=== PATIENT | male | born 1955 | race Hispanic/Latino ===

== ENCOUNTER 2020-05-13 19:57 | Observation (INO) | payer OTHER, SELFPAY ==
[2020-05-14 01:12] LABS: Troponin I Less than 0.010 ng/mL (< 0.028)
[2020-05-14 03:59] LABS: Troponin I 0.022 ng/mL (< 0.028)
[2020-05-14] MEDS ORDERED: Dextrose 5% in Water 1,000 ML IV PRN (04:25)
[2020-05-14] MEDS ORDERED: HumaLOG 300 UNITS/3 ML VIAL SC PRN (04:25)
[2020-05-14] MEDS ORDERED: Dextrose 50% Abboject 50 ML SYRINGE SLOW IVP PRN (04:25)
[2020-05-14] MEDS: Sodium Chloride 0.9% 1,000 ML IV SCH ×2 (05:17→21:06)
[2020-05-14 05:40] LABS: #Basophils 0.1 thou/uL (0.0-0.2); #Eosinphils 0.1 thou/uL (0.0-0.7); #Lymphocytes 2.1 thou/uL (1.20-3.40); #Monocytes 0.6 thou/uL (0.11-0.59); #Neutrophils 7.5 thou/uL (1.40-6.50); %Basophils 0.6 % (0.0-1.0); %Lymphocytes 20.1 % (21.0-51.0); %Monocytes 5.8 % (0.0-10.0); %Neutrophils 72.4 % (42.0-75.0); Mean Corpuscular HGB CONC 33.9 g/dL (32.0-36.0); Mean Corpuscular Hemoglobin 29.3 pg (27.0-31.0); Mean Corpuscular Volume 86.6 fL (78.0-98.0); Mean Platelet Volume 7.8 fL (7.4-10.4); Platelet Count 293 thou/uL (130-400); RBC Distribution Width 12.2 % (11.5-14.5); Red Blood Cell (RBC) Count 4.76 mill/uL (4.70-6.10); White Blood Cell (WBC) Count 10.4 thou/uL (4.8-10.8)
[2020-05-14 06:15] LABS: Anion Gap 12 mmol/L (10-20); BUN (Urea Nitrogen) 25 mg/dL (8.4-25.7); Calc. Creatinine Clearance 70 mL/min (70-130); Calcium 7.5 mg/dL (7.8-10.44); Carbon Dioxide 22 mmol/L (23-31); Chloride 107 mmol/L (98-107); Estimated GFR-MDRD 49; Glucose 124 mg/dL (80-115); Potassium 3.3 mmol/L (3.5-5.1); Sodium 138 mmol/L (136-145)
--- NOTE | 2020-05-14 08:00 | HP ---
REASON FOR ADMISSION: Dizziness and elevated blood pressure. HISTORY OF PRESENT ILLNESS: This is a 65-year-old male patient, who presented to the ER, reporting that his blood pressure has been high. Also, he had tinnitus in his left ear and decreased hearing. He also was dizzy, but currently not dizzy anymore. Patient denies any trauma to his ear and denies recent viral illness. Denies being exposed to loud noise. PAST MEDICAL HISTORY: 1. Diabetes. 2. High blood pressure. PAST SURGICAL HISTORY: Postcholecystectomy. ALLERGIES: NO NOTE OF ANY DRUG ALLERGIES. SOCIAL HISTORY: Does not smoke. Drinks alcohol occasionally. REVIEW OF SYSTEMS: All systems reviewed except the above mentioned, found to be negative. PHYSICAL EXAMINATION: GENERAL: Awake, alert, oriented, does not appear in distress. VITAL SIGNS: His blood pressure is 170/82, heart rate of 67, temperature is 98.1, saturating 94% on room air. HEENT: Head is nontraumatic, normocephalic. Pupils equal, reactive. Extraocular movements are intact. Nonicteric sclerae. Well injected conjunctivae. Oral mucosa normal. Nasal mucosa normal. I did examine his ear and I do see a slight wax buildup on his left eardrum. He does have decreased hearing on the left side on my physical examination. NECK: Supple. No adenopathy. No murmur. Thyroid is not palpable. Trachea is midline. No supraclavicular adenopathy. HEART: S1, S2 regular. No murmurs. No gallops. No friction rubs. No displacement of PMI. LUNGS: Clear to auscultation bilaterally. No wheezes, no rhonchi, no crackles. ABDOMEN: Bowel sounds are positive, slight tenderness on palpation of the lower abdominal area, but overall, the abdomen is soft. EXTREMITIES: No lower extremity edema. No cyanosis. NEUROLOGIC: I do not detect any nystagmus. Cranial nerves appeared to be intact. He does have normal motor function throughout all his 4 extremities. DIAGNOSTIC STUDIES: CT of the brain showed no acute findings. Chest x-ray shows mild cardiomegaly, but no acute finding. 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 LABORATORY DATA: Blood work shows sodium of 143, potassium 3.4, bicarb 24, creatinine 1.98. No previous labs to compare with. Troponin less than 0.01. WBC of 11.3, hemoglobin 15.4, neutrophil count 89.8%. ASSESSMENT AND PLAN: 1. This is a 65-year-old male patient presenting with uncontrolled blood pressure, also dizziness that resolved, but persistent decreased hearing and tinnitus in his left ear, possibly due to Meniere disease. On the other hand, we should rule out central etiology and for that reason, he will undergo an MRI of the brain. We will practice permissive hypertension and we will continue with aspirin. 2. Gastrointestinal. Patient does have slight abdominal discomfort on palpation of his lower abdomen. CT scan of the abdomen mentioned that possibility of enteritis. For now, we will continue to observe him from that standpoint. 3. Endocrinology. Patient is diabetic. We will hold his metformin and his oral antidiabetics. He will be on insulin sliding scale and in regards of the incidental finding of his adrenal mass, Urology was consulted for further input. 4. Renal system. Electrolytes, patient has increased creatinine. We do not know his baseline. As per him, he was never told that he has kidney problems. We will hydrate with IV fluids. We will recheck his electrolytes. Until then, we will hold his VIVIAN inhibitor. Hold his metformin. 5. For deep vein thrombosis prophylaxis, he will be on heparin subcutaneously. Job ID: [id number]
[2020-05-14] MEDS: Heparin 5,000 UNITS/ML VIAL SC SCH ×2 (08:37→16:15)
[2020-05-14] MEDS ORDERED: Aspirin 81 mg Enteric Coated Tablet PO SCH (09:00)
--- NOTE | 2020-05-14 10:20 | MRI ---
MRI BRAIN WITHOUT CONTRAST: HISTORY: Vertigo, concern for stroke COMPARISON: None CORRELATION: CT scan from 05/13/2020. FINDINGS: No restricted diffusion is seen. There are foci of T2 prolongation in the periventricular white matte r, consistent with mild chronic small vessel ischemic disease. The ventricular size is appropriate and the basilar cisterns are patent. No evidence of acute infarct, hemorrhage, midline shift or abnormal extra-axial fluid collections is seen. There is mild mucosal disease in the paranasal sinuses. IMPRESSION: No evidence of acute intracranial process.
[2020-05-14] MEDS ORDERED: Metoprolol Tartrate 25 MG TAB PO SCH ×2 (11:00→21:00)
--- NOTE | 2020-05-14 14:59 | CON ---
NEUROLOGICAL CONSULTATION DATE OF CONSULTATION: 05/14/2020 REASON FOR CONSULTATION: Dizziness, hypertensive emergency, rule out CVA. HISTORY OF PRESENT ILLNESS: Mr. Abdon Chaudhari is a Persian-speaking 65-year-old male with history significant for diabetes and hypertension, presented to the emergency room yesterday with dizziness, decreased hearing in the left ear because of persistent ringing in the ear. When he arrived to the emergency room, his blood pressure was high. The patient denies any focal weakness, focal paresthesias. He does complain of nausea, vomiting, mild headache, but denies chest pain, abdominal pain, recent illness or recent exposure to COVID, loss of vision or blurred vision associated with dizziness. His symptoms almost resolved today except left ear tinnitus REVIEW OF SYSTEMS: All 14 systems were reviewed and were negative except the pertinent positives and negatives mentioned in the HPI. PAST MEDICAL HISTORY: Diabetes, hypertension. PAST SURGICAL HISTORY: Cholecystectomy. ALLERGIES: NO KNOWN DRUG ALLERGIES. SOCIAL HISTORY: The patient denies smoking. Drinks alcohol occasionally. PHYSICAL EXAMINATION: VITAL SIGNS: Blood pressure 140/60, pulse 80, respiratory rate 18. CVS: Regular rate and rhythm. CHEST: Clear. ABDOMEN: Soft. NECK: Supple. NEUROLOGIC: Mental status; the patient is alert and oriented to person, place, and time. Recent and remote memory intact. Speech is clear. Cranial nerves 2 through 12 intact. Sensory intact. Cerebellar, finger-nose testing intact. Gait, deferred due to the patient's safety reason. LABORATORY DATA: Data reviewed. I reviewed the MRI of the brain, which was negative for acute intracranial pathology. ASSESSMENT AND PLAN: Mr. Abdon Chaudhari is consulted for dizziness and ringing in the left ear, most likely benign positional vertigo versus hypertensive emergency. Consider ENT input Symptomatic treatment of vertigo with medication. MRI of the brain reviewed and it was negative for acute intracranial pathology. Neuro checks every 4 hours. Continue home medications. PT/OT Continue medical management per primary team. Thank you for the consult. Job ID: [id number] [facility]
[2020-05-14 16:05] LABS: SARS-CoV-2 MS2 Positive; SARS-CoV-2 N Gene Negative; SARS-CoV-2 S Gene Negative; SARS-CoV-2 by NAA Not Detected (NotDetected); SARS-CoV-2 orf1ab Negative
[2020-05-14 16:17] VITALS: BP 160/82; TEMP 97.9
[2020-05-14] MEDS ORDERED: Lisinopril 20 MG TAB PO SCH (21:00)
--- NOTE | 2020-05-15 00:16 | DIS ---
DATE OF ADMISSION: 05/13/2020 DATE OF DISCHARGE: 05/14/2020 DIAGNOSIS: The patient was diagnosed with vertigo secondary to elevated/high blood pressure. HISTORY OF PRESENT ILLNESS: Mr. Chaudhari is a 65-year-old gentleman with a past medical history of type 2 diabetes and hypertension, who presented with a 4-day history of ringing in his left ear. He reports during that time, his blood pressure had been elevated at as high as systolic blood pressure with 186. Patient was admitted for CVA evaluation. HOSPITAL COURSE: An MRI of the head was obtained to rule out central causes of vertigo and revealed no acute infarcts. Neurology was consulted due to CVA evaluation. As evaluation was negative for CVA, patient's tinnitus is likely secondary to benign positional vertigo versus uncontrolled hypertension vs medication side effect. PHYSICAL EXAMINATION: General: resting comfortably in bed HEART: Regular rate and rhythm, no murmurs. LUNGS: Clear to auscultation bilaterally. ABDOMEN: Soft, nontender, and nondistended. EXTREMITIES: There was no peripheral edema. NEURO: No focal neuro deficits, moving all extremities spontaneously. DISPOSITION AND CONDITION: The patient will be discharged home in stable condition. ACTIVITY: As tolerated. DIET: Diabetic diet. DISCHARGE MEDICATIONS: All home medications have been continued. No new medications were started in the hospital. DISCHARGE INSTRUCTIONS: The patient was instructed to follow up with his PCP within 3 days and ENT for further evaluation of tinnitus. All questions were answered. Return precautions were given. TIME SPENT ON THE PATIENT'S DISCHARGE: Greater than 30 minutes. Job ID: [id number] [facility]
[2020-05-15] MEDS ORDERED: Amlodipine 10 MG TAB PO SCH (09:00)
== END 2020-05-14 19:40 | disposition home or self-care (01) ==
LOC: ERS 19:57 → 2SW 21:29
PROVIDERS: ADMIT Internal Medicine; ATTEND Internal Medicine
DX: I16.1 Hypertensive emergency (principal); H93.12 Tinnitus, left ear; I10 Essential (primary) hypertension; E11.9 Type 2 diabetes mellitus without complications; Z79.84 Long term (current) use of oral hypoglycemic drugs; Z79.899 Other long term (current) drug therapy; Z20.828 Contact with and (suspected) exposure to other viral communicable diseases
CPT/HCPCS: 36415; 36416; 70551; 80048; 84484; 85025; 87635; 90471; 90732; 96360; 96361; 96372; 99285; G0009; G0378; J1644; U0003

== ENCOUNTER 2022-02-21 20:07 | Emergency (ER) | payer SELFPAY | END 2022-02-21 21:42 | disposition home or self-care (01) | LOC: ERS 20:07 | DX: S91.301A Unspecified open wound, right foot, initial encounter (principal); I10 Essential (primary) hypertension; E11.9 Type 2 diabetes mellitus without complications; E78.2 Mixed hyperlipidemia; W45.8XXA Other foreign body or object entering through skin, initial encounter | CPT/HCPCS: 99283 ==

== ENCOUNTER 2022-11-17 21:31 | Inpatient (IN) | payer MEDICAID, SELFPAY ==
[2022-11-17] MEDS ORDERED: Nitroglycerin 0.4 MG TAB 1 EACH ONE ×3 (22:01→22:29)
[2022-11-17] MEDS ORDERED: Aspirin Chewable 81 MG TAB ONE (22:01)
[2022-11-17 22:11] LABS: #Eosinphils 0.3 thou/uL (0.0-0.7); #Lymphocytes 2.9 thou/uL (1.20-3.40); #Monocytes 0.7 thou/uL (0.11-0.59); #Neutrophils 10.8 thou/uL (1.40-6.50); %Basophils 0.3 % (0.0-1.0); %Eosinophils 2.1 % (0.0-10.0); %Lymphocytes 19.4 % (21.0-51.0); %Neutrophils 73.2 % (42.0-75.0); Hemoglobin 8.8 g/dL (14.0-18.0); Mean Corpuscular HGB CONC 35.1 g/dL (32.0-36.0); Mean Corpuscular Hemoglobin 31.3 pg (27.0-31.0); Mean Corpuscular Volume 89.2 fl (78.0-98.0); Mean Platelet Volume 7.3 fL (7.4-10.4); Platelet Count 244 10x3/uL (130-400); RBC Distribution Width 14.1 % (11.5-14.5); Red Blood Cell (RBC) Count 2.82 mill/uL (4.70-6.10); White Blood Cell (WBC) Count 14.7 10x3/uL (4.8-10.8)
[2022-11-17 22:37] LABS: ALT (SGPT) 14 U/L (8-55); AST (SGOT) 24 U/L (5-34); Alkaline Phosphatase 114 U/L (40-110); Anion Gap 22 mmol/L (10-20); BUN (Urea Nitrogen) 108 mg/dL (8.4-25.7); Bilirubin, Total 0.4 mg/dL (0.2-1.2); Calc. Creatinine Clearance 0 mL/min (70-130); Carbon Dioxide 15 mmol/L (23-31); Chloride 108 mmol/L (98-107); Estimated GFR 5; Globulin 3.9 g/dL (2.4-3.5); Potassium 2.9 mmol/L (3.5-5.1); Protein, Total 6.9 g/dL (5.8-8.1); Sodium 142 mmol/L (136-145)
[2022-11-17 22:41] LABS: Calcium 6.7 mg/dL (7.8-10.44); Glucose 45 mg/dL (80-115)
[2022-11-17] MEDS ORDERED: Potassium Chloride 20 MEQ/100 ML PREMIX BAG ONE (22:51)
[2022-11-17] MEDS ORDERED: Furosemide 20 MG/2 ML VIAL ONE (22:51)
[2022-11-17 22:59] LABS: CKMB 3.8 ng/mL (0-6.6)
[2022-11-17] MEDS ORDERED: Nitroglycerin 2% Ointment 1 INCH/1 GM Packet ONE (23:02)
[2022-11-17] MEDS ORDERED: Cefepime 2 GM VIAL ONE (23:33)
[2022-11-17 23:43] LABS: CK (CPK) 168 U/L (30-200); Magnesium 2.2 mg/dL (1.6-2.6)
[2022-11-17] MEDS ORDERED: hydrALAZINE 20 MG/ML VIAL ONE (23:47)
[2022-11-18 00:12] LABS: Bacteria/HPF None Seen HPF (None Seen); Bilirubin Negative (Negative); Blood, Urine 1+ (Negative); Clarity Clear (Clear); Glucose, Urine (Dipstick) 30 mg/dL (Negative); Ketone, Urine Negative (Negative); Leukocyte Negative Leu/uL (Negative); Nitrite Negative (Negative); Protein, Urine (Dipstick) 300 mg/dL (Neg-Trace); RBC/HPF 0-3 HPF (0-3); Specific Gravity, Urine 1.016 (1.002-1.036); Squamous Epithelial 0-3 HPF (0-3); Urobilinogen Normal mg/dL (Less than 2)
[2022-11-18] MEDS ORDERED: Dextrose 5% in Water 1,000 ML IV PRN (00:13)
[2022-11-18] MEDS ORDERED: Dextrose 50% Abboject 50 ML SYRINGE SLOW IVP PRN (00:13)
[2022-11-18] MEDS ORDERED: Vancomycin 1.5 GRAM/300 ML BAG 1.5 GM in Premix Bag 1 BAG IVPB SCH (00:15)
[2022-11-18] MEDS ORDERED: niCARdipine 25 MG/10 ML SDV ONE ×2 (00:49→00:59)
[2022-11-18 00:50] LABS: SARS-CoV-2 NAA Rapid Test Not Detected (NotDetected)
[2022-11-18 02:00] LABS: #Eosinphils 0.2 thou/uL (0.0-0.7); #Lymphocytes 1.8 thou/uL (1.20-3.40); #Monocytes 0.7 thou/uL (0.11-0.59); #Neutrophils 10.6 thou/uL (1.40-6.50); %Basophils 0.3 % (0.0-1.0); %Eosinophils 1.3 % (0.0-10.0); %Lymphocytes 13.8 % (21.0-51.0); %Monocytes 5.1 % (0.0-10.0); %Neutrophils 79.6 % (42.0-75.0); Hemoglobin 9.6 g/dL (14.0-18.0); Mean Corpuscular HGB CONC 33.7 g/dL (32.0-36.0); Mean Corpuscular Hemoglobin 30.1 pg (27.0-31.0); Mean Corpuscular Volume 89.5 fl (78.0-98.0); Mean Platelet Volume 6.7 fL (7.4-10.4); Platelet Count 244 10x3/uL (130-400); RBC Distribution Width 14.1 % (11.5-14.5); Red Blood Cell (RBC) Count 3.17 mill/uL (4.70-6.10); White Blood Cell (WBC) Count 13.3 10x3/uL (4.8-10.8)
[2022-11-18] MEDS ORDERED: Lorazepam 2 MG/ML VIAL SLOW IVP SCH (02:00)
[2022-11-18 02:26] LABS: Troponin I 0.111 ng/mL (< 0.028)
[2022-11-18] MEDS ORDERED: niCARdipine 25 MG in Sodium Chloride 0.9% 250 ML 250 ML IVPB SCH ×2 (02:45→03:45)
[2022-11-18 02:49] LABS: Phosphorus 7.9 mg/dL (2.3-4.7)
[2022-11-18 02:53] VITALS: BMI 39.6
[2022-11-18 02:54] LABS: ALT (SGPT) 15 U/L (8-55); AST (SGOT) 28 U/L (5-34); Albumin 2.8 g/dL (3.4-4.8); Alkaline Phosphatase 123 U/L (40-110); Anion Gap 22 mmol/L (10-20); BUN (Urea Nitrogen) 111 mg/dL (8.4-25.7); Bilirubin, Total 0.5 mg/dL (0.2-1.2); Calc. Creatinine Clearance 9 mL/min (70-130); Carbon Dioxide 13 mmol/L (23-31); Chloride 109 mmol/L (98-107); Estimated GFR 5; Glucose 108 mg/dL (80-115); Magnesium 2.2 mg/dL (1.6-2.6); Potassium 3.1 mmol/L (3.5-5.1); Protein, Total 6.8 g/dL (5.8-8.1); Sodium 141 mmol/L (136-145)
[2022-11-18 03:04] LABS: Calcium 6.8 mg/dL (7.8-10.44)
[2022-11-18 03:59] LABS: #Eosinphils 0.2 thou/uL (0.0-0.7); #Lymphocytes 1.2 thou/uL (1.20-3.40); #Monocytes 0.6 thou/uL (0.11-0.59); #Neutrophils 10.1 thou/uL (1.40-6.50); %Basophils 0.1 % (0.0-1.0); %Eosinophils 1.5 % (0.0-10.0); %Lymphocytes 9.5 % (21.0-51.0); %Monocytes 5.2 % (0.0-10.0); %Neutrophils 83.7 % (42.0-75.0); Hemoglobin 9.2 g/dL (14.0-18.0); Mean Corpuscular HGB CONC 34.6 g/dL (32.0-36.0); Mean Corpuscular Volume 89.5 fl (78.0-98.0); Mean Platelet Volume 7.6 fL (7.4-10.4); Platelet Count 230 10x3/uL (130-400); RBC Distribution Width 14.2 % (11.5-14.5); Red Blood Cell (RBC) Count 2.96 mill/uL (4.70-6.10); White Blood Cell (WBC) Count 12.1 10x3/uL (4.8-10.8)
[2022-11-18 04:19] LABS: Phosphorus 7.7 mg/dL (2.3-4.7)
[2022-11-18 06:33] LABS: Troponin I 0.152 ng/mL (< 0.028)
[2022-11-18] MEDS: Heparin 5,000 UNITS/ML VIAL SC SCH ×3 (08:21→20:59)
[2022-11-18] MEDS ORDERED: Famotidine 20 MG TAB PO SCH ×2 (09:00→21:00)
[2022-11-18] MEDS ORDERED: NIFEdipine XL 60 MG TAB PO SCH (11:15)
[2022-11-18] MEDS ORDERED: Furosemide 40 MG/4 ML VIAL SLOW IVP SCH (11:15)
[2022-11-18] MEDS ORDERED: Carvedilol 6.25 MG TAB PO SCH (11:15)
[2022-11-18] MEDS: CALCIUM GLUC 1 GM/NS 50 ML 1 GM in Premix Bag 1 BAG IVPB SCH ×2 (12:43→14:42)
[2022-11-18] MEDS: Potassium Bicarbonate/Cit Ac 20 MEQ TAB PO SCH ×3 (12:46→18:53)
[2022-11-18] MEDS ORDERED: hydrALAZINE 25 MG TAB PO SCH (15:00)
[2022-11-18] MEDS ORDERED: Sodium Bicarbonate Tab 325 MG TAB PO SCH ×2 (16:30→21:00)
[2022-11-18] MEDS: Carvedilol 6.25 MG TAB PO SCH (17:20)
[2022-11-18 17:53] LABS: Albumin 2.3 g/dL (3.4-4.8); Anion Gap 19 mmol/L (10-20); BUN (Urea Nitrogen) 110 mg/dL (8.4-25.7); BUN/Creatinine Ratio 10.43; Calc. Creatinine Clearance 10 mL/min (70-130); Carbon Dioxide 15 mmol/L (23-31); Chloride 110 mmol/L (98-107); Estimated GFR 5; Glucose 99 mg/dL (80-115); Phosphorus 8.5 mg/dL (2.3-4.7); Potassium 3.7 mmol/L (3.5-5.1); Sodium 140 mmol/L (136-145)
[2022-11-18 17:56] LABS: Calcium 6.9 mg/dL (7.8-10.44)
[2022-11-18] MEDS ORDERED: Calcium Gluconate 13.8 MEQ in Sodium Chloride 0.9% 250 ML 250 ML IVPB SCH (18:50)
[2022-11-18] MEDS: Furosemide 40 MG/4 ML VIAL SLOW IVP SCH (20:59)
[2022-11-18] MEDS ORDERED: cefTRIAXone\\ROCEPHIN 2 GM in Sodium Chloride 0.9% 100 ML IVPB SCH (22:00)
[2022-11-18] MEDS ORDERED: Azithromycin 500 MG in Sodium Chloride 0.9% 250 ML 250 ML IVPB SCH (23:00)
[2022-11-19] MEDS ORDERED: Lorazepam 2 MG/ML VIAL SLOW IVP SCH (00:15)
[2022-11-19 03:51] LABS: #Eosinphils 0.1 thou/uL (0.0-0.7); #Lymphocytes 0.9 thou/uL (1.20-3.40); #Monocytes 0.3 thou/uL (0.11-0.59); #Neutrophils 9.1 thou/uL (1.40-6.50); %Basophils 0.1 % (0.0-1.0); %Eosinophils 0.5 % (0.0-10.0); %Monocytes 3.1 % (0.0-10.0); %Neutrophils 87.2 % (42.0-75.0); Hemoglobin 7.8 g/dL (14.0-18.0); Mean Corpuscular HGB CONC 34.1 g/dL (32.0-36.0); Mean Corpuscular Hemoglobin 30.7 pg (27.0-31.0); Mean Platelet Volume 7.8 fL (7.4-10.4); Platelet Count 221 10x3/uL (130-400); RBC Distribution Width 13.9 % (11.5-14.5); Red Blood Cell (RBC) Count 2.54 mill/uL (4.70-6.10); White Blood Cell (WBC) Count 10.4 10x3/uL (4.8-10.8)
[2022-11-19 04:15] LABS: Albumin 2.1 g/dL (3.4-4.8); Anion Gap 21 mmol/L (10-20); BUN (Urea Nitrogen) 112 mg/dL (8.4-25.7); BUN/Creatinine Ratio 10.39; Calc. Creatinine Clearance 9 mL/min (70-130); Calcium 7.2 mg/dL (7.8-10.44); Carbon Dioxide 15 mmol/L (23-31); Chloride 110 mmol/L (98-107); Estimated GFR 5; Glucose 128 mg/dL (80-115); Iron 64 ug/dL (65-175); Iron Binding Capacity, Total 171 mcg/dL (261-462); Potassium 3.9 mmol/L (3.5-5.1); Sodium 142 mmol/L (136-145)
[2022-11-19 04:17] LABS: Phosphorus 9.3 mg/dL (2.3-4.7)
[2022-11-19] MEDS ORDERED: Albumin 25% 25 GM/100 ML BOT IVPB SCH (07:30)
[2022-11-19] MEDS: Heparin 5,000 UNITS/ML VIAL SC SCH ×3 (07:44→20:46)
[2022-11-19] MEDS: Furosemide 40 MG/4 ML VIAL SLOW IVP SCH ×2 (07:44→20:46)
[2022-11-19] MEDS: Carvedilol 6.25 MG TAB PO SCH ×2 (07:45→16:59)
[2022-11-19] MEDS: NIFEdipine XL 60 MG TAB PO SCH (07:49)
[2022-11-19] MEDS: Ergocalciferol 1.25 MG(50,000 UNITS) CAP PO SCH (07:58)
[2022-11-19] MEDS: Calcitriol 0.25 MCG CAP PO SCH (07:58)
[2022-11-19] MEDS: Sodium Bicarbonate Tab 325 MG TAB PO SCH ×3 (07:59→20:46)
[2022-11-19] MEDS: Albumin 25% 25 GM/100 ML BOT IVPB SCH ×2 (11:53→16:59)
[2022-11-19 12:13] LABS: Creatinine, Urine 49.99 mg/dL (63-166)
[2022-11-19] MEDS: HumaLOG 300 UNITS/3 ML VIAL SC PRN ×2 (12:19→16:59)
[2022-11-19] MEDS: Calcium Acetate 667 MG CAP PO SCH (16:59)
[2022-11-19] MEDS ORDERED: CEFAZOLIN 2 GM in Sodium Chloride 0.9% 100 ML IVPB SCH (17:45)
[2022-11-19] MEDS ORDERED: Nitroglycerin 2% Ointment 1 INCH/1 GM Packet TOP PRN (21:38)
[2022-11-19] MEDS ORDERED: Heparin 25,000 units/D5W 500 ML IVPB SCH (22:30)
[2022-11-19] MEDS ORDERED: Heparin 10,000 UNITS/ 10 ML VIAL SLOW IVP SCH (22:30)
[2022-11-19] MEDS ORDERED: Aspirin 81 mg Enteric Coated Tablet PO SCH (22:30)
[2022-11-19 23:49] LABS: Hemoglobin 7.7 g/dL (14.0-18.0); Platelet Count 218 10x3/uL (130-400)
[2022-11-20] MEDS: Albumin 25% 25 GM/100 ML BOT IVPB SCH ×2 (00:01→05:52)
[2022-11-20 00:51] LABS: Urine Total Volume 700 mL (250-2400)
[2022-11-20 01:08] LABS: 24 Hr Creatinine 356.86 mg/24 hr (950-2490); Creatinine, Urine 50.98 mg/dL (63-166)
[2022-11-20 02:21] LABS: Critical Call Chem Troponin I RESULT DECREASING; Troponin I 0.237 ng/mL (< 0.028)
[2022-11-20 02:42] LABS: Protein - 24 Hr 6545 mg/24 hr (Less than 300); Protein, Urine 935 mg/dL (1-14)
[2022-11-20 04:35] LABS: Anion Gap 22 mmol/L (10-20); BUN (Urea Nitrogen) 116 mg/dL (8.4-25.7); BUN/Creatinine Ratio 10.33; Calc. Creatinine Clearance 9 mL/min (70-130); Calcium 7.4 mg/dL (7.8-10.44); Carbon Dioxide 15 mmol/L (23-31); Chloride 108 mmol/L (98-107); Estimated GFR 5; Glucose 135 mg/dL (80-115); Potassium 3.8 mmol/L (3.5-5.1); Sodium 141 mmol/L (136-145)
[2022-11-20 04:36] LABS: INR-International Normal Ratio 1.2; Prothrombin Time 16.1 sec (12.0-14.7)
[2022-11-20 04:38] LABS: Phosphorus 9.9 mg/dL (2.3-4.7)
[2022-11-20 04:41] LABS: Critical Call Chem Troponin I RESULT DECREASING; Troponin I 0.236 ng/mL (< 0.028)
[2022-11-20 04:43] LABS: PTT 133.8 sec (22.9-36.1)
[2022-11-20] MEDS ORDERED: Sevoflurane 250 ML INH ANEST BOTTLE ONE (04:57)
[2022-11-20 05:41] LABS: Hep B Core Total Ab Non-Reactive (NonReactive); Hep B Core Total Index 0.34 S/CO (0-0.79)
[2022-11-20 05:42] LABS: HBSAB Concentration Less than 8.00 mIU/mL; Hep B Surf AB Non-Reactive (NonReactive)
[2022-11-20 05:43] LABS: Hep C IgG Ab Non-Reactive (NonReactive); Hep C Index 0.18 S/CO (0-0.79)
[2022-11-20 08:28] LABS: HBSAg Index 0.48 S/CO (0-0.99); Hep B Surf Ag Non-Reactive S/CO (NonReactive)
[2022-11-20] MEDS: Furosemide 40 MG/4 ML VIAL SLOW IVP SCH ×2 (08:46→21:04)
[2022-11-20] MEDS: Cefdinir 300 MG CAP PO SCH (08:47)
[2022-11-20] MEDS: Sodium Bicarbonate Tab 325 MG TAB PO SCH ×3 (08:47→21:04)
[2022-11-20] MEDS: Calcium Acetate 667 MG CAP PO SCH ×3 (08:47→17:40)
[2022-11-20] MEDS: NIFEdipine XL 60 MG TAB PO SCH (08:47)
[2022-11-20] MEDS: Morphine 4 MG/ML VIAL SLOW IVP PRN ×4 (08:47→21:05)
[2022-11-20] MEDS: Calcitriol 0.25 MCG CAP PO SCH (08:47)
[2022-11-20] MEDS: Carvedilol 6.25 MG TAB PO SCH ×2 (08:47→17:40)
[2022-11-20] MEDS ORDERED: Furosemide 100 MG/10 ML VIAL SLOW IVP SCH (09:55)
[2022-11-20 16:16] LABS: A/G Ratio 0.7 (0.7-1.7); Albumin 2.5 g/dL (2.9-4.4); Alpha 1 0.4 g/dL (0.0-0.4); Beta 1.2 g/dL (0.7-1.3); Gamma 1.1 g/dL (0.4-1.8); Globulin, Total 3.6 g/dL (2.2-3.9); M-Spike Not Observed g/dL (Not Observed); Protein Electrophoresis Intrp Note: (.)
[2022-11-21 06:03] LABS: Albumin 3.2 g/dL (3.4-4.8); Anion Gap 18 mmol/L (10-20); BUN (Urea Nitrogen) 92 mg/dL (8.4-25.7); BUN/Creatinine Ratio 9.44; Calc. Creatinine Clearance 10 mL/min (70-130); Calcium 7.6 mg/dL (7.8-10.44); Carbon Dioxide 21 mmol/L (23-31); Chloride 105 mmol/L (98-107); Cholesterol 131 mg/dl (< 200 Desired); Estimated GFR 5; Glucose 108 mg/dL (80-115); HDL Cholesterol 22 mg/dL (>60 Neg Risk); LDL Cholesterol, Calculated 77 mg/dL; Phosphorus 8.1 mg/dL (2.3-4.7); Potassium 3.7 mmol/L (3.5-5.1); Sodium 140 mmol/L (136-145); Triglycerides 159 mg/dL (Less than 150)
[2022-11-21] MEDS: Calcium Acetate 667 MG CAP PO SCH ×3 (08:58→17:52)
[2022-11-21] MEDS: Cefdinir 300 MG CAP PO SCH (08:58)
[2022-11-21] MEDS: Sodium Bicarbonate Tab 325 MG TAB PO SCH ×3 (08:58→20:59)
[2022-11-21] MEDS: NIFEdipine XL 60 MG TAB PO SCH (08:58)
[2022-11-21] MEDS: Calcitriol 0.25 MCG CAP PO SCH (08:59)
[2022-11-21] MEDS: Lisinopril 20 MG TAB PO SCH (08:59)
[2022-11-21] MEDS: Ondansetron PF 4 MG/2 ML Vial IVP PRN ×2 (08:59→22:01)
[2022-11-21] MEDS: Carvedilol 6.25 MG TAB PO SCH ×3 (08:59→21:00)
[2022-11-21] MEDS: Furosemide 40 MG/4 ML VIAL SLOW IVP SCH ×2 (08:59→20:59)
[2022-11-22] MEDS: Cefdinir 300 MG CAP PO SCH (09:38)
[2022-11-22] MEDS: Furosemide 40 MG/4 ML VIAL SLOW IVP SCH ×2 (09:38→21:37)
[2022-11-22] MEDS: Calcium Acetate 667 MG CAP PO SCH ×3 (09:39→16:56)
[2022-11-22] MEDS: Carvedilol 6.25 MG TAB PO SCH ×3 (09:39→21:37)
[2022-11-22] MEDS: Lisinopril 20 MG TAB PO SCH (09:39)
[2022-11-22] MEDS: Calcitriol 0.25 MCG CAP PO SCH (09:39)
[2022-11-22] MEDS: NIFEdipine XL 60 MG TAB PO SCH (09:40)
[2022-11-22] MEDS: Sodium Bicarbonate Tab 325 MG TAB PO SCH (09:40)
[2022-11-22 11:07] LABS: Hemoglobin 7.5 g/dL (14.0-18.0); Platelet Count 232 10x3/uL (130-400)
[2022-11-22 11:17] LABS: Anion Gap 16 mmol/L (10-20); BUN (Urea Nitrogen) 56 mg/dL (8.4-25.7); BUN/Creatinine Ratio 7.59; Calc. Creatinine Clearance 13 mL/min (70-130); Calcium 8.1 mg/dL (7.8-10.44); Carbon Dioxide 28 mmol/L (23-31); Chloride 99 mmol/L (98-107); Estimated GFR 8; Glucose 145 mg/dL (80-115); Phosphorus 6.5 mg/dL (2.3-4.7); Potassium 3.4 mmol/L (3.5-5.1); Sodium 140 mmol/L (136-145)
[2022-11-22] MEDS ORDERED: Potassium Chloride 20 MEQ TAB PO SCH (12:45)
[2022-11-23 05:03] LABS: Albumin 3.1 g/dL (3.4-4.8); Anion Gap 16 mmol/L (10-20); BUN (Urea Nitrogen) 25 mg/dL (8.4-25.7); BUN/Creatinine Ratio 5.77; Calc. Creatinine Clearance 22 mL/min (70-130); Calcium 8.4 mg/dL (7.8-10.44); Carbon Dioxide 26 mmol/L (23-31); Chloride 101 mmol/L (98-107); Estimated GFR 14; Glucose 106 mg/dL (80-115); Phosphorus 3.7 mg/dL (2.3-4.7); Sodium 139 mmol/L (136-145)
[2022-11-23] MEDS: Calcium Acetate 667 MG CAP PO SCH ×3 (06:02→15:59)
[2022-11-23] MEDS: Calcitriol 0.25 MCG CAP PO SCH (06:02)
[2022-11-23] MEDS: Carvedilol 6.25 MG TAB PO SCH (06:02)
[2022-11-23] MEDS: Cefdinir 300 MG CAP PO SCH (06:02)
[2022-11-23] MEDS: NIFEdipine XL 60 MG TAB PO SCH (06:03)
[2022-11-23] MEDS: Furosemide 40 MG/4 ML VIAL SLOW IVP SCH (06:03)
[2022-11-23] MEDS: Lisinopril 20 MG TAB PO SCH (06:03)
[2022-11-23] MEDS: Torsemide 100 MG TAB PO SCH (08:01)
[2022-11-23] MEDS ORDERED: Lidocaine 1% w/Epinephrine 1:100K 20 ML VIAL ONE (08:44)
[2022-11-23] MEDS ORDERED: Heparin 10,000 UNITS/ 10 ML VIAL ONE (08:44)
[2022-11-23] MEDS ORDERED: Lidocaine 1% (PF) 30 ML VIAL ONE (08:45)
[2022-11-23] MEDS ORDERED: Iopamidol 370 76% 100 ML VIAL ONE (09:58)
[2022-11-23] MEDS ORDERED: FENTANYL 50 MCG/ML 1 ML VIAL ONE (10:14)
[2022-11-23] MEDS ORDERED: Midazolam HCl 2 mg/2 ml Vial ONE (10:14)
[2022-11-23] MEDS ORDERED: Nitroglycerin 4.9 GM Bottle ONE (10:54)
[2022-11-23] MEDS ORDERED: Protamine Sulfate 50 MG/5 ML VIAL ONE (11:12)
[2022-11-23] MEDS ORDERED: Nitroglycerin 0.4 MG TAB (25 Tab Bottle) SL PRN (11:18)
[2022-11-23] MEDS ORDERED: Sodium Chloride 0.9% 200 ML IV PRN (11:18)
[2022-11-23] MEDS: Acetaminophen/Codeine 30-300mg Tablet PO PRN (12:05)
[2022-11-23] MEDS: Carvedilol 25 MG TAB PO SCH (15:59)
[2022-11-23 16:13] LABS: Albumin, PEP 24hr Ur 45.1 % (NOT ESTAB.); Alpha-1-Globulin, PEP 24h Ur 7.2 % (NOT ESTAB.); Alpha-2-Globulin, PEP 24h Ur 11.2 % (NOT ESTAB.); Beta Globulin, PEP 24h Ur 17.3 % (NOT ESTAB.); Gamma Globulin, PEP 24h Ur 19.3 % (NOT ESTAB.); M-Spike,% PEP 24hr Ur Not Observed % (Not Observed); Protein, Urine 950.9 mg/dL (Not Estab.)
[2022-11-23] MEDS: Heparin 5,000 UNITS/ML VIAL SC SCH (21:35)
[2022-11-23 23:02] LABS: Hemoglobin 6.9 g/dL (14.0-18.0); Platelet Count 258 10x3/uL (130-400)
[2022-11-24] MEDS: Acetaminophen/Codeine 30-300mg Tablet PO PRN ×2 (01:17→19:04)
[2022-11-24] MEDS ORDERED: Heparin 10,000 UNITS/ 10 ML VIAL ONE (09:01)
[2022-11-24 10:16] LABS: Albumin 3.2 g/dL (3.4-4.8); Anion Gap 13 mmol/L (10-20); BUN (Urea Nitrogen) 33 mg/dL (8.4-25.7); BUN/Creatinine Ratio 6.83; Calc. Creatinine Clearance 18 mL/min (70-130); Calcium 8.5 mg/dL (7.8-10.44); Carbon Dioxide 29 mmol/L (23-31); Chloride 100 mmol/L (98-107); Estimated GFR 13; Glucose 124 mg/dL (80-115); Phosphorus 3.4 mg/dL (2.3-4.7); Potassium 3.9 mmol/L (3.5-5.1); Sodium 138 mmol/L (136-145)
[2022-11-24 10:21] LABS: #Basophils 0.1 thou/uL (0.0-0.2); #Eosinphils 0.2 thou/uL (0.0-0.7); #Lymphocytes 1.5 thou/uL (1.20-3.40); #Monocytes 0.8 thou/uL (0.11-0.59); %Basophils 0.5 % (0.0-1.0); %Lymphocytes 14.1 % (21.0-51.0); %Monocytes 7.9 % (0.0-10.0); %Neutrophils 75.4 % (42.0-75.0); Hemoglobin 7.1 g/dL (14.0-18.0); Mean Corpuscular HGB CONC 31.2 g/dL (32.0-36.0); Mean Corpuscular Hemoglobin 28.6 pg (27.0-31.0); Mean Corpuscular Volume 91.7 fl (78.0-98.0); Mean Platelet Volume 7.6 fL (7.4-10.4); Platelet Count 330 10x3/uL (130-400); RBC Distribution Width 13.3 % (11.5-14.5); Red Blood Cell (RBC) Count 2.46 mill/uL (4.70-6.10); White Blood Cell (WBC) Count 10.5 10x3/uL (4.8-10.8)
[2022-11-24] MEDS: NIFEdipine XL 60 MG TAB PO SCH (13:23)
[2022-11-24] MEDS: Cefdinir 300 MG CAP PO SCH (13:24)
[2022-11-24] MEDS: Calcitriol 0.25 MCG CAP PO SCH (13:24)
[2022-11-24] MEDS: Lisinopril 20 MG TAB PO SCH (13:24)
[2022-11-24] MEDS: Carvedilol 25 MG TAB PO SCH ×2 (13:24→17:09)
[2022-11-24] MEDS: Calcium Acetate 667 MG CAP PO SCH ×3 (13:24→17:09)
[2022-11-24] MEDS: Torsemide 100 MG TAB PO SCH (13:25)
[2022-11-24] MEDS: Heparin 5,000 UNITS/ML VIAL SC SCH (13:27)
[2022-11-24] MEDS ORDERED: Bisacodyl 10 MG SUPP PR SCH (15:00)
[2022-11-24] MEDS ORDERED: Pantoprazole 40 MG VIAL IVP SCH (15:00)
[2022-11-24] MEDS ORDERED: Lidocaine 2% Viscous Solution 10 ML, Aluminum & Magnesium Hydroxide 30 ML SSW SCH (15:30)
[2022-11-24 16:31] LABS: Hemoglobin 8.5 g/dL (14.0-18.0); Platelet Count 342 10x3/uL (130-400)
[2022-11-24] MEDS: Pantoprazole 40 MG VIAL IVP SCH (20:27)
[2022-11-25] MEDS: Acetaminophen/Codeine 30-300mg Tablet PO PRN (04:05)
[2022-11-25 05:16] LABS: #Eosinphils 0.1 thou/uL (0.0-0.7); #Lymphocytes 1.3 thou/uL (1.20-3.40); #Neutrophils 10.8 thou/uL (1.40-6.50); %Basophils 0.2 % (0.0-1.0); %Eosinophils 0.5 % (0.0-10.0); %Lymphocytes 9.9 % (21.0-51.0); %Monocytes 7.9 % (0.0-10.0); %Neutrophils 81.4 % (42.0-75.0); Hemoglobin 7.6 g/dL (14.0-18.0); Mean Corpuscular HGB CONC 33.6 g/dL (32.0-36.0); Mean Corpuscular Hemoglobin 30.7 pg (27.0-31.0); Mean Corpuscular Volume 91.3 fl (78.0-98.0); Mean Platelet Volume 7.5 fL (7.4-10.4); Platelet Count 264 10x3/uL (130-400); RBC Distribution Width 13.4 % (11.5-14.5); Red Blood Cell (RBC) Count 2.47 mill/uL (4.70-6.10); White Blood Cell (WBC) Count 13.2 10x3/uL (4.8-10.8)
[2022-11-25 05:42] LABS: Anion Gap 13 mmol/L (10-20); BUN (Urea Nitrogen) 23 mg/dL (8.4-25.7); Calc. Creatinine Clearance 20 mL/min (70-130); Calcium 8.1 mg/dL (7.8-10.44); Carbon Dioxide 28 mmol/L (23-31); Chloride 99 mmol/L (98-107); Estimated GFR 14; Glucose 143 mg/dL (80-115); Potassium 4.1 mmol/L (3.5-5.1); Sodium 136 mmol/L (136-145)
[2022-11-25] MEDS ORDERED: CEFAZOLIN 2 GM in Sodium Chloride 0.9% 100 ML IVPB SCH (06:00)
[2022-11-25] MEDS ORDERED: Bupivacaine HCl 0.5%/Epinephrine 1:200,000/PF 30 ml Vial ONE (06:35)
[2022-11-25] MEDS ORDERED: Lidocaine 2% PF 5 ML VIAL ONE (06:35)
[2022-11-25] MEDS ORDERED: Heparin 10,000 UNITS/ 10 ML VIAL ONE (06:35)
[2022-11-25] MEDS ORDERED: Heparin 5,000 UNITS/ML VIAL ONE (06:35)
[2022-11-25] MEDS ORDERED: Midazolam HCl 2 mg/2 ml Vial ONE (06:54)
[2022-11-25] MEDS ORDERED: FENTANYL 50 MCG/ML 1 ML VIAL ONE ×2 (06:54→07:48)
[2022-11-25] MEDS ORDERED: Propofol 500 MG/50 ML VIAL ONE (06:55)
[2022-11-25] MEDS ORDERED: Propofol 1,000 MG/100 ML VIAL IV ONE (06:55)
[2022-11-25] MEDS ORDERED: Sodium Chloride 0.9% 100 ML ONE (07:28)
[2022-11-25] MEDS ORDERED: CEFAZOLIN 2 GM VIAL ONE (07:28)
[2022-11-25] MEDS ORDERED: Norepinephrine 4 MG/4 ML VIAL ONE (07:43)
[2022-11-25] MEDS ORDERED: SUGAMMADEX SODIUM 200 MG/2 ML VIAL ONE (07:49)
[2022-11-25] MEDS ORDERED: Acetaminophen 500 MG TAB PO PRN (07:55)
[2022-11-25] MEDS ORDERED: Acetaminophen 500 MG TAB PO SCH (08:00)
[2022-11-25] MEDS ORDERED: Albumin 5% 250 ML ONE (08:01)
[2022-11-25] MEDS ORDERED: PROPOFOL 200 MG/20 ML VIAL ONE (08:05)
[2022-11-25] MEDS ORDERED: Lidocaine 1% PF 5 ML VIAL ONE (08:05)
[2022-11-25] MEDS ORDERED: Ondansetron PF 4 MG/2 ML Vial ONE (08:05)
[2022-11-25] MEDS ORDERED: ePHEDrine Sulfate 50 MG/10 ML VIAL ONE (08:05)
[2022-11-25] MEDS ORDERED: Rocuronium Bromide 10 MG/ML (10ML VIAL) ONE (08:05)
[2022-11-25] MEDS ORDERED: Protamine Sulfate 50 MG/5 ML VIAL ONE (08:45)
[2022-11-25] MEDS ORDERED: Promethazine HCl 25 MG/ML VIAL IM PRN (09:12)
[2022-11-25] MEDS ORDERED: Ondansetron HCl/PF 4 MG/2 ML Vial IVP PRN (09:12)
[2022-11-25] MEDS ORDERED: HYDROmorphone 2 MG/ML VIAL SLOW IVP PRN (09:12)
[2022-11-25] MEDS ORDERED: Iopamidol 370 76% 100 ML VIAL ONE (09:17)
[2022-11-25] MEDS: Calcium Acetate 667 MG CAP PO SCH ×3 (13:06→16:40)
[2022-11-25] MEDS: Carvedilol 25 MG TAB PO SCH ×2 (13:06→16:40)
[2022-11-25] MEDS: Cefdinir 300 MG CAP PO SCH (13:07)
[2022-11-25] MEDS: Pantoprazole 40 MG VIAL IVP SCH (13:07)
[2022-11-25] MEDS: Lisinopril 20 MG TAB PO SCH (13:07)
[2022-11-25] MEDS: Calcitriol 0.25 MCG CAP PO SCH (13:07)
[2022-11-25] MEDS: NIFEdipine XL 60 MG TAB PO SCH (13:07)
[2022-11-25] MEDS: Torsemide 100 MG TAB PO SCH (13:07)
[2022-11-25] MEDS: Ondansetron PF 4 MG/2 ML Vial IVP PRN (15:07)
[2022-11-25] MEDS ORDERED: Tuberculin PPD 0.1 ML VIAL I-DERMAL SCH (19:30)
[2022-11-26 05:50] LABS: #Basophils 0.1 thou/uL (0.0-0.2); #Eosinphils 0.3 thou/uL (0.0-0.7); #Lymphocytes 1.3 thou/uL (1.20-3.40); #Monocytes 0.8 thou/uL (0.11-0.59); %Basophils 0.5 % (0.0-1.0); %Eosinophils 2.3 % (0.0-10.0); %Lymphocytes 10.4 % (21.0-51.0); %Monocytes 6.1 % (0.0-10.0); %Neutrophils 80.7 % (42.0-75.0); Hemoglobin 8.6 g/dL (14.0-18.0); Mean Corpuscular HGB CONC 33.6 g/dL (32.0-36.0); Mean Corpuscular Hemoglobin 31.2 pg (27.0-31.0); Mean Corpuscular Volume 92.8 fl (78.0-98.0); Mean Platelet Volume 7.5 fL (7.4-10.4); Platelet Count 249 10x3/uL (130-400); RBC Distribution Width 13.7 % (11.5-14.5); Red Blood Cell (RBC) Count 2.76 mill/uL (4.70-6.10); White Blood Cell (WBC) Count 12.4 10x3/uL (4.8-10.8)
[2022-11-26 06:08] LABS: Anion Gap 19 mmol/L (10-20); BUN (Urea Nitrogen) 36 mg/dL (8.4-25.7); Calc. Creatinine Clearance 14 mL/min (70-130); Calcium 8.2 mg/dL (7.8-10.44); Carbon Dioxide 24 mmol/L (23-31); Chloride 99 mmol/L (98-107); Estimated GFR 9; Glucose 122 mg/dL (80-115); Potassium 4.6 mmol/L (3.5-5.1); Sodium 137 mmol/L (136-145)
[2022-11-26 07:37] LABS: Phosphorus 5.1 mg/dL (2.3-4.7)
[2022-11-26] MEDS: Calcium Acetate 667 MG CAP PO SCH ×3 (08:28→17:33)
[2022-11-26] MEDS: NIFEdipine XL 60 MG TAB PO SCH (08:29)
[2022-11-26] MEDS: HYDROcodone/Acetaminophen 5/325 mg Tablet PO PRN ×2 (08:29→23:40)
[2022-11-26] MEDS: Carvedilol 25 MG TAB PO SCH ×2 (08:29→17:33)
[2022-11-26] MEDS: Lisinopril 20 MG TAB PO SCH (08:29)
[2022-11-26] MEDS: Calcitriol 0.25 MCG CAP PO SCH (08:29)
[2022-11-26] MEDS: Cefdinir 300 MG CAP PO SCH (08:29)
[2022-11-26] MEDS: Torsemide 100 MG TAB PO SCH (08:31)
[2022-11-26] MEDS: Ergocalciferol 1.25 MG(50,000 UNITS) CAP PO SCH (08:31)
[2022-11-26] MEDS ORDERED: Heparin 10,000 UNITS/ 10 ML VIAL ONE (09:00)
[2022-11-26] MEDS ORDERED: Tuberculin PPD 0.1 ML VIAL I-DERMAL SCH (09:30)
[2022-11-27] MEDS: Morphine 4 MG/ML VIAL SLOW IVP PRN (03:28)
[2022-11-27] MEDS: Lisinopril 20 MG TAB PO SCH (09:40)
[2022-11-27] MEDS: Carvedilol 25 MG TAB PO SCH ×2 (09:41→17:20)
[2022-11-27] MEDS: NIFEdipine XL 60 MG TAB PO SCH (09:41)
[2022-11-27] MEDS: Ferrous Sulfate 325 MG TAB PO SCH (09:42)
[2022-11-27] MEDS: Calcitriol 0.25 MCG CAP PO SCH (09:42)
[2022-11-27] MEDS: Cefdinir 300 MG CAP PO SCH (09:42)
[2022-11-27] MEDS: Calcium Acetate 667 MG CAP PO SCH ×3 (09:42→17:21)
[2022-11-27] MEDS: Torsemide 100 MG TAB PO SCH (09:47)
[2022-11-28] MEDS: Carvedilol 25 MG TAB PO SCH ×2 (08:26→17:41)
[2022-11-28] MEDS: Calcium Acetate 667 MG CAP PO SCH ×3 (08:27→18:02)
[2022-11-28] MEDS ORDERED: READ PPD TEST SITE PO SCH (09:00)
[2022-11-28] MEDS: Ferrous Sulfate 325 MG TAB PO SCH (14:02)
[2022-11-28] MEDS: Torsemide 100 MG TAB PO SCH (14:07)
[2022-11-28] MEDS: NIFEdipine XL 60 MG TAB PO SCH (15:14)
[2022-11-28] MEDS: Calcitriol 0.25 MCG CAP PO SCH (15:14)
[2022-11-28] MEDS: Cefdinir 300 MG CAP PO SCH (15:14)
[2022-11-28] MEDS: Lisinopril 20 MG TAB PO SCH (15:14)
[2022-11-29 07:13] LABS: #Basophils 0.1 thou/uL (0.0-0.2); #Eosinphils 0.2 thou/uL (0.0-0.7); #Lymphocytes 1.9 thou/uL (1.20-3.40); #Monocytes 0.9 thou/uL (0.11-0.59); #Neutrophils 8.5 thou/uL (1.40-6.50); %Basophils 0.6 % (0.0-1.0); %Eosinophils 2.1 % (0.0-10.0); %Lymphocytes 16.1 % (21.0-51.0); %Monocytes 7.5 % (0.0-10.0); %Neutrophils 73.8 % (42.0-75.0); Hemoglobin 10.1 g/dL (14.0-18.0); Mean Corpuscular HGB CONC 34.7 g/dL (32.0-36.0); Mean Corpuscular Hemoglobin 32.1 pg (27.0-31.0); Mean Corpuscular Volume 92.6 fl (78.0-98.0); Mean Platelet Volume 7.6 fL (7.4-10.4); Platelet Count 286 10x3/uL (130-400); RBC Distribution Width 13.4 % (11.5-14.5); Red Blood Cell (RBC) Count 3.14 mill/uL (4.70-6.10); White Blood Cell (WBC) Count 11.5 10x3/uL (4.8-10.8)
[2022-11-29 07:37] LABS: Anion Gap 15 mmol/L (10-20); BUN (Urea Nitrogen) 32 mg/dL (8.4-25.7); Calc. Creatinine Clearance 13 mL/min (70-130); Calcium 8.7 mg/dL (7.8-10.44); Carbon Dioxide 26 mmol/L (23-31); Chloride 94 mmol/L (98-107); Estimated GFR 9; Glucose 153 mg/dL (80-115); Potassium 4.2 mmol/L (3.5-5.1); Sodium 131 mmol/L (136-145)
[2022-11-29] MEDS ORDERED: READ PPD TEST SITE PO SCH (09:00)
[2022-11-29] MEDS: Carvedilol 25 MG TAB PO SCH ×2 (09:19→17:56)
[2022-11-29] MEDS: Lisinopril 20 MG TAB PO SCH (09:19)
[2022-11-29] MEDS: NIFEdipine XL 60 MG TAB PO SCH (09:20)
[2022-11-29] MEDS: Torsemide 100 MG TAB PO SCH (09:20)
[2022-11-29] MEDS: Calcitriol 0.25 MCG CAP PO SCH (09:21)
[2022-11-29] MEDS: Calcium Acetate 667 MG CAP PO SCH ×3 (09:21→17:56)
[2022-11-29] MEDS: Ferrous Sulfate 325 MG TAB PO SCH (09:21)
[2022-11-29] MEDS: Cefdinir 300 MG CAP PO SCH (09:21)
[2022-11-29] MEDS ORDERED: Bisacodyl 5 MG TAB PO PRN (09:44)
[2022-11-29] MEDS ORDERED: Bisacodyl 5 MG TAB PO SCH (10:30)
[2022-11-30] MEDS: Cefdinir 300 MG CAP PO SCH (09:34)
[2022-11-30] MEDS: Polyethylene Glycol 3350 17 GM Packet PO SCH ×2 (09:34→20:30)
[2022-11-30] MEDS: Calcium Acetate 667 MG CAP PO SCH ×3 (09:35→16:37)
[2022-11-30] MEDS: Lisinopril 20 MG TAB PO SCH (09:35)
[2022-11-30] MEDS: Calcitriol 0.25 MCG CAP PO SCH (09:36)
[2022-11-30] MEDS: NIFEdipine XL 60 MG TAB PO SCH (09:36)
[2022-11-30] MEDS: Ferrous Sulfate 325 MG TAB PO SCH (09:36)
[2022-11-30] MEDS: Carvedilol 25 MG TAB PO SCH ×2 (09:37→16:37)
[2022-11-30] MEDS: Torsemide 100 MG TAB PO SCH (09:42)
[2022-12-01] MEDS ORDERED: Heparin 10,000 UNITS/ 10 ML VIAL ONE (08:50)
[2022-12-01 09:57] LABS: #Basophils 0.1 thou/uL (0.0-0.2); #Eosinphils 0.3 thou/uL (0.0-0.7); #Lymphocytes 1.8 thou/uL (1.20-3.40); #Monocytes 1.1 thou/uL (0.11-0.59); #Neutrophils 8.3 thou/uL (1.40-6.50); %Basophils 0.6 % (0.0-1.0); %Eosinophils 2.2 % (0.0-10.0); %Lymphocytes 15.7 % (21.0-51.0); %Monocytes 9.2 % (0.0-10.0); %Neutrophils 72.4 % (42.0-75.0); Hemoglobin 9.9 g/dL (14.0-18.0); Mean Corpuscular HGB CONC 31.9 g/dL (32.0-36.0); Mean Corpuscular Hemoglobin 29.2 pg (27.0-31.0); Mean Corpuscular Volume 91.4 fl (78.0-98.0); Mean Platelet Volume 7.7 fL (7.4-10.4); Platelet Count 313 10x3/uL (130-400); RBC Distribution Width 13.3 % (11.5-14.5); White Blood Cell (WBC) Count 11.5 10x3/uL (4.8-10.8)
[2022-12-01] MEDS: Carvedilol 25 MG TAB PO SCH (10:28)
[2022-12-01] MEDS: Calcium Acetate 667 MG CAP PO SCH ×2 (10:28→14:27)
[2022-12-01] MEDS: Polyethylene Glycol 3350 17 GM Packet PO SCH (10:29)
[2022-12-01 11:22] LABS: Albumin 3.6 g/dL (3.4-4.8); Anion Gap 18 mmol/L (10-20); BUN (Urea Nitrogen) 68 mg/dL (8.4-25.7); BUN/Creatinine Ratio 7.04; Calc. Creatinine Clearance 9 mL/min (70-130); Calcium 8.8 mg/dL (7.8-10.44); Carbon Dioxide 24 mmol/L (23-31); Chloride 90 mmol/L (98-107); Estimated GFR 5; Glucose 180 mg/dL (80-115); Phosphorus 4.1 mg/dL (2.3-4.7); Potassium 5.1 mmol/L (3.5-5.1); Sodium 127 mmol/L (136-145)
[2022-12-01] MEDS: Torsemide 100 MG TAB PO SCH (13:53)
[2022-12-01] MEDS: Lisinopril 20 MG TAB PO SCH (13:53)
[2022-12-01] MEDS: NIFEdipine XL 60 MG TAB PO SCH (13:53)
[2022-12-01] MEDS: Ferrous Sulfate 325 MG TAB PO SCH (14:26)
[2022-12-01] MEDS: Calcitriol 0.25 MCG CAP PO SCH (14:27)
[2022-12-01 17:01] VITALS: BP 124/68; TEMP 98.2
== END 2022-12-01 17:32 | disposition home or self-care (01) | DRG 264 ==
LOC: ERS 21:31 → CCU 11-18 00:46 → T4-B 11-19 15:58 → 2NO 11-19 23:14 → T4-B 11-26 17:59
PROVIDERS: ADMIT Family Medicine; ATTEND Internal Medicine
PROC: 4A023N7 Measurement of Cardiac Sampling and Pressure, Left Heart, Percutaneous Approach (ICD-10-PCS; 2022-11-18)
PROC: B2151ZZ Fluoroscopy of Left Heart using Low Osmolar Contrast (ICD-10-PCS; 2022-11-18)
PROC: B2111ZZ Fluoroscopy of Multiple Coronary Arteries using Low Osmolar Contrast (ICD-10-PCS; 2022-11-18)
PROC: 06HY33Z Insertion of Infusion Device into Lower Vein, Percutaneous Approach (ICD-10-PCS; 2022-11-20)
PROC: 5A1D70Z Performance of Urinary Filtration, Intermittent, Less than 6 Hours Per Day (ICD-10-PCS; 2022-11-20)
PROC: 30233N1 Transfusion of Nonautologous Red Blood Cells into Peripheral Vein, Percutaneous Approach (ICD-10-PCS; 2022-11-24)
PROC: 031C0ZF Bypass Left Radial Artery to Lower Arm Vein, Open Approach (ICD-10-PCS; principal; 2022-11-25)
PROC: 0DJ08ZZ Inspection of Upper Intestinal Tract, Via Natural or Artificial Opening Endoscopic (ICD-10-PCS; 2022-11-25)
PROC: 0JH63XZ Insertion of Tunneled Vascular Access Device into Chest Subcutaneous Tissue and Fascia, Percutaneous Approach (ICD-10-PCS; 2022-11-25)
PROC: 02HV33Z Insertion of Infusion Device into Superior Vena Cava, Percutaneous Approach (ICD-10-PCS; 2022-11-25)
PROC: B548ZZA Ultrasonography of Superior Vena Cava, Guidance (ICD-10-PCS; 2022-11-25)
DX: I13.2 Hypertensive heart and chronic kidney disease with heart failure and with stage 5 chronic kidney disease, or end stage renal disease (principal); I21.A1 Myocardial infarction type 2; I50.33 Acute on chronic diastolic (congestive) heart failure; J18.9 Pneumonia, unspecified organism; N18.6 End stage renal disease; N17.9 Acute kidney failure, unspecified; I16.1 Hypertensive emergency; E87.20 Acidosis, unspecified; N25.81 Secondary hyperparathyroidism of renal origin; Z20.822 Contact with and (suspected) exposure to COVID-19; E11.22 Type 2 diabetes mellitus with diabetic chronic kidney disease; I12.9 Hypertensive chronic kidney disease with stage 1 through stage 4 chronic kidney disease, or unspecified chronic kidney disease; E11.649 Type 2 diabetes mellitus with hypoglycemia without coma; E87.6 Hypokalemia; E83.51 Hypocalcemia; E78.00 Pure hypercholesterolemia, unspecified; E66.9 Obesity, unspecified; E88.09 Other disorders of plasma-protein metabolism, not elsewhere classified; E83.39 Other disorders of phosphorus metabolism; D63.1 Anemia in chronic kidney disease; I25.10 Atherosclerotic heart disease of native coronary artery without angina pectoris; I16.0 Hypertensive urgency; Z79.84 Long term (current) use of oral hypoglycemic drugs; Z79.899 Other long term (current) drug therapy; Z87.891 Personal history of nicotine dependence; Z90.49 Acquired absence of other specified parts of digestive tract; Z68.39 Body mass index [BMI] 39.0-39.9, adult
CPT/HCPCS: 36415; 36416; 36430; 71045; 74177; 76700; 80048; 80053; 80061; 80069; 81003; 81015; 82088; 82306; 82550; 82553; 82570; 82728; 83540; 83550; 83605; 83735; 83880; 83970; 84100; 84145; 84155; 84156; 84165; 84166; 84244; 84300; 84484; 84540; 85014; 85018; 85025; 85049; 85347; 85610; 85730; 86580; 86704; 86850; 86900; 86901; 87040; 90935; 93005; 93010; 93306; 93458; 93798; 93970; 96365; 96366; 96367; 96375; 99152; 99153; C1752; C1769; C1776; C9113; G0257; J0360; J0456; J0610; J0611; J0692; J0696; J1642; J1644; J1815; J1940; J2001; J2060; J2250; J2270; J2405; J2704; J2720; J3010; J3370; J3480; J3490; J7050; P9016; P9045; P9047; Q9967